=== PATIENT | female | born 1965 | race African-American/Black ===

== ENCOUNTER 2021-09-16 04:46 | Emergency (ER) | payer MEDICAID ==
[~2021-09-16] VITALS: Ht 172.7 cm; Wt 200.0 kg
[2021-09-16] MEDS ORDERED: ASPIRIN 81MG TABLET PO ONE (06:00)
[2021-09-16] MEDS ORDERED: NITROGLYCERIN 0.4MG TABLET SL SL PRN (06:00)
[2021-09-16 06:57] LABS: HEMATOCRIT. 42.1 % (36.0-48.0); HEMOGLOBIN. 14.1 g/dL (12.0-16.0); MEAN CORPUSCULAR HEMOGLOBIN 27.7 pg (28.0-32.0); MEAN CORPUSCULAR VOLUME 82.5 fL (81.0-99.0); RED BLOOD CELL COUNT 5.11 mill/uL (4.2-5.4); RED CELL DISTRIBUTION WIDTH 14.1 % (11.6-14.6)
[2021-09-16 07:00] LABS: CHLORIDE 111 mEq/L (98-107)
[2021-09-16 08:03] LABS: PLATELET 186 x1000/uL (130-400)
[2021-09-16 09:11] VITALS: BP 128/70
[2021-09-16] MEDS ORDERED: MAGNESIUM/ALUMINUM HYDROXIDE/SIMETHICONE 30ML UDC PO STA (09:13)
[2021-09-16] MEDS ORDERED: HYDROCODONE/ACETAMINOPHEN 5/325MG TABLET PO STA (09:13)
== END 2021-09-16 12:23 | disposition home or self-care (01) ==
LOC: ER 05:08
DX: R07.89 Other chest pain (principal); E11.9 Type 2 diabetes mellitus without complications; I10 Essential (primary) hypertension; H40.9 Unspecified glaucoma; E66.01 Morbid (severe) obesity due to excess calories; Z68.44 Body mass index [BMI] 60.0-69.9, adult
CPT/HCPCS: 36415; 71045; 80053; 83880; 84484; 85025; 93005; 99285; Z7610

== ENCOUNTER 2022-06-02 15:15 | Emergency (ER) | payer MEDICAID ==
[~2022-06-02] VITALS: Ht 167.6 cm; Wt 205.0 kg
[2022-06-02] MEDS ORDERED: LORAZEPAM 1MG TABLET PO ONE (16:30)
[2022-06-02] MEDS ORDERED: ACETAMINOPHEN 325MG TABLET PO NR (17:30)
[2022-06-02 18:12] LABS: CHLORIDE 74 mEq/L (98-107)
[2022-06-02] MEDS ORDERED: SODIUM CHLORIDE 0.9% 500 ML IV ONE (18:30)
[2022-06-02] MEDS ORDERED: LEVOFLOXACIN 750MG PREMIX 150 ML IV NR (18:30)
[2022-06-02] MEDS: SODIUM CHLORIDE 0.9% 500 ML IV ONE ×2 (18:39→18:57)
[2022-06-02] MEDS ORDERED: CALCIUM GLUCONATE 100MG/ML 10ML VIAL IV NR (18:45)
[2022-06-02 18:58] VITALS: BP 125/77
[2022-06-02] MEDS ORDERED: NITROGLYCERIN 0.4MG/HR PATCH TOP NR (19:30)
[2022-06-02] MEDS ORDERED: LABETALOL 5MG/ML SYR 20 MG/4 ML SYRINGE IV NR (19:30)
[2022-06-02 19:31] LABS: BASOPHILS % 0.4 % (0.0-2.0); EOSINOPHILS % 0.8 % (0.0-5.0); HEMATOCRIT. 43.6 % (36.0-48.0); HEMOGLOBIN. 14.3 g/dL (12.0-16.0); LYMPHOCYTES % 29.2 % (20.0-50.0); MEAN CORPUSCULAR VOLUME 82.5 fL (81.0-99.0); MEAN PLATELET VOLUME 9.6 fl (7.4-10.4); MONOCYTES % 12.1 % (2.0-8.0); NEUTROPHILS % 57.5 % (40.0-76.0); PLATELET 185 x1000/uL (130-400); RED BLOOD CELL COUNT 5.28 mill/uL (4.2-5.4); RED CELL DISTRIBUTION WIDTH 14.3 % (11.6-14.6)
[2022-06-02] MEDS ORDERED: POTASSIUM CHLORIDE INJ 40 MEQ in DEXT 5% WATER 250 ML IV ONE (20:00)
[2022-06-02 20:09] LABS: BG BASE EXCESS 4.7 mmol/L (-2.0-2.0); BG CARBOXYHEMOGLOBIN 0.5 % (0.5-1.5); BG DEOXYHEMOGLOBIN 4.8 % (0.0-5.0); BG FRACTION INSPIRED OXYGEN 21; BG HCO3 ACT 28.4 mmol/L (22.0-26.0); BG METHEMOGLOBIN 0.2 % (0.0-1.5); BG OXYGEN SATURATION 95.2 % (92.0-98.5); BG OXYHEMOGLOBIN 94.5 % (94.0-97.0); BG PCO2 38.7 mmHg (35.0-45.0); BG PH 7.483 (7.350-7.450); BG SAMPLE SITE RIGHT BRACHIAL; BG TOTAL HEMOGLOBIN 14.7 g/dL (12.0-18.0); BG VENT MODE ROOM AIR
[2022-06-02] MEDS ORDERED: ENOXAPARIN 150MG/ML SYR SUBCUT NR (20:30)
== END 2022-06-02 21:00 | disposition left against medical advice (07) ==
LOC: ER 15:15 → CANBEDREQ 06-04 07:30
DX: J18.9 Pneumonia, unspecified organism (principal); I10 Essential (primary) hypertension; E11.9 Type 2 diabetes mellitus without complications; E87.0 Hyperosmolality and hypernatremia; Z98.890 Other specified postprocedural states; Z88.0 Allergy status to penicillin
CPT/HCPCS: 36415; 36600; 71045; 80053; 82010; 82375; 82805; 83605; 83880; 84484; 85025; 85379; 87040; 99284; J0610; J1956; J3480; J7060; Z7610; J1650; J3490